=== PATIENT | male | born 1995 | race Two or more races ===

== ENCOUNTER 2016-05-22 21:00 | Emergency (ER) | payer MEDICAID ==
[~2016-05-22] VITALS: Ht 167.6 cm; Wt 104.3 kg
[2016-05-22 21:55] VITALS: BP 156/66
[2016-05-22] MEDS ORDERED: predniSONE 20 MG TABLET PO ONE (23:00)
== END 2016-05-22 23:07 | disposition home or self-care (01) ==
LOC: ER 21:04
DX: F41.9 Anxiety disorder, unspecified (principal); Z88.0 Allergy status to penicillin
CPT/HCPCS: 93005; 99283; A4606; Z7610